=== PATIENT | male | born 1965 | race Caucasian/White ===

== ENCOUNTER 2017-03-25 05:39 | Inpatient (IN) | payer OTHER ==
[~2017-03-25] VITALS: Ht 180.3 cm; Wt 116.0 kg
--- NOTE | ~2017-03-25 | CT2 ---
[facility] A Service of [facility] & [facility] RADIOLOGY TEXT RESULTS PATIENT: AKSHAT FLORES JR LOCATION: A 320-01 : [birth year] UNIT #: [id number] AGE: [address]: Akshat Davila MD SEX: M ORDER DR: [id number] [facility] [address] [place], [place] [address] [id number] MR#: [id number] Acc #: [id number] NAME: AKSHAT FLORES JR : 1965 SEX: M STUDY DATE/TIME: 03/25/2017 10:41 UNIT: CPACUOF ROOM: STUDY DESCRIPTION: CT Abd and Pelv W Cont Attending Physician: Akshat Davila M.D. Ordering Physician: Akshat Davila M.D. Primary Care Physician: Maira Mcclure A.P.R.N. MEDICAL IMAGING REPORT This report is preliminary unless electronic signature is present EXAM CT abdomen and pelvis HISTORY Left lower quadrant pain. Double hernia. Bloody in stool for 2 months. Colon cancer diagnosed today. TECHNIQUE CT abdomen and pelvis performed with intravenous administration of 100 mL Isovue-370. Enteric contrast also administered. This CT exam was performed with one or more of the following radiation dose reduction techniques: automatic exposure control, adjustment of mA and/or kV according to patient size, and iterative reconstruction. COMPARISON No prior studies for comparison. Comparison with prior studies recommended, if available. FINDINGS Lung bases are clear. Inferior heart and pericardium unremarkable. Diffuse fatty infiltration of the liver with some focal spurring along the gallbladder fossa. Mild hepatic enlargement measuring about 17.9 cm in craniocaudal extent. Gallbladder, spleen, pancreas, adrenal glands, and kidneys unremarkable. CT PELVIS: Bilateral inguinal hernias containing only fat, right larger than left. No evidence of complication. Urinary bladder unremarkable. Prostatic calcifications. No pathologically enlarged retroperitoneal lymph nodes. There are some small enhancing retroperitoneal nodes, the largest of which measures about 7 x 8 mm in short axis. There are small lymph nodes suggested in proximity to the inferior mesenteric vein. These are entirely nonspecific, but given findings elsewhere on the scan, these small nodes and the suggestion of subtle enhancement is somewhat STS. [facility] A Service of [facility] & [facility] RADIOLOGY TEXT RESULTS PATIENT: AKSHAT FLORES JR LOCATION: C3A 320-01 : 63 UNIT #: [id number] AGE: [address]: Akshat Davila MD SEX: M ORDER DR: concerning, and attention on followup is recommended. There are small subcentimeter gastrohepatic ligament nodes. The distal esophagus, stomach, small bowel, and appendix are unremarkable. The colon is unremarkable to the level of the mid sigmoid colon, where there is an approximately 5-6 cm segment of near circumferential mass-like colonic wall thickening. There is associated luminal narrowing, but there is no evidence of obstruction. The more proximal colon is normal in caliber. Adjacent to this thickened segment of colon, there is some subtle haziness and stranding in the adjacent fat. This is nonspecific, but could be a reflection of inflammatory change or transmural tumor extension. Along the superior aspect of the lesion, there are multiple rounded densities favored to represent lymph nodes. The largest of these measures on the order of 7-14 mm. Appearance is concerning for angie metastatic disease. In addition there is at least 1 hypertrophied vein extending from the region of the lesion to the inferior mesenteric vein. There is relative enhancement of the colonic lesion, compared to the adjacent normal segments of colon. There is some fluid and air in the distal sigmoid colon and rectum beyond the lesion. The aorta is normal in caliber. The bony structures show degenerative changes in the spine. No acute-appearing abnormality. Note made of narrowing of the bilateral L5-S1 neural foramina. Appearance raises concern for possible bilateral exiting L5 nerve irritation. There is a posterior disc osteophyte complex at this level, as well, with some narrowing at the bilateral lateral recesses. Correlate clinically. IMPRESSION 1. Abnormal examination. There is a 5-6 cm segment of mid to distal sigmoid colon demonstrating near concentric mural thickening. This is at a level approximately 12 cm from the anal verge. The appearance is consistent with malignancy. This is felt to represent the location of the patient's stated colon cancer. There is luminal compromise, but there is no evidence of obstruction. No proximal colonic dilatation. Air and fluid seen in the most distal sigmoid colon and rectum. 2. Adjacent to the abnormal segment of distal sigmoid colon, there is haziness and stranding in the daly-sigmoidal fat. This could be reactive inflammatory change. Tumoral extension not excluded. In addition, there are small lymph nodes seen adjacent to the abnormal segment of sigmoid colon concerning for angie metastatic disease. Furthermore, there is at least 1 hypertrophied vein extending from the region of the abnormal colon to the inferior mesenteric vein. The region of colonic wall thickening shows mural thickening up to about 17 mm. 3. There are some small retroperitoneal lymph nodes measuring under 1 cm in short axis, and there are some small lymph nodes along the course of the inferior mesenteric vein. These are nonspecific. Some of them show subtle enhancement. The appearance raises concern for potential metastatic disease. Attention at followup recommended. These nodes are not amenable to either percutaneous sampling or STS. [facility] A Service of [facility] RADIOLOGY TEXT RESULTS PATIENT: AKSHAT FLORES JR LOCATION: [facility] 320-01 : 63 UNIT #: [id number] AGE: [address]: Akshat Davila MD SEX: M ORDER DR: assessment with PET/CT scan. 4. Fatty infiltration of liver without suspicious focal abnormality. Mild hepatic enlargement. 5. No other acute abnormalities in the abdomen or pelvis. 6. Bilateral inguinal hernias containing only fat, left greater than right. 7. Degenerative changes in the spine, most pronounced at L5-S1. See discussion above. If it would assist in management, lumbar spine could be further evaluated with elective MRI, if the patient is a candidate. No findings to raise concern for osseous metastatic disease. Dictated by... Kwadwo Bajwa M.D. THIS IS AN ELECTRONICALLY VERIFIED REPORT Kwadwo Bajwa M.D. at 03/25/2017 6:04 PM DONALD/gabriela TD: 03/25/2017 13:08 JOB #: [id number] MEDICAL IMAGING REPORT Page 1 of 1 COPY
--- NOTE | ~2017-03-25 | EKG ---
PATIENT: AKSHAT FLORES UNIT #: [id number] Ventricular Rate: 54 BPM Atrial Rate: 54 BPM P-R Interval: 136 ms QRS Duration: 88 ms Q-T Interval: 434 ms QTC Calculation(Bezet): 411 ms P [employer]: 20 degrees Calculated R [employer]: 7 degrees Diagnosis Line: Sinus bradycardia Diagnosis Line: Otherwise normal ECG Diagnosis Line: No previous ECGs available Diagnosis Line: Confirmed by RUBÉN WHITNEY MD ([id number]) on Diagnosis Line: 03/25/2017 12:01:41 PM INTERPRETING MD: DEVONTE JETER
--- NOTE | ~2017-03-25 | CO ---
Unit #: [id number] #: [id number] Patient: AKSHAT FLORES JR [id number] [address] [place], [place] [address] [id number] I MR#: [id number] NAME: AKSHAT FLORES JR ROOM: 475 Age: 51 Sex: M Admission Date: 03/25/2017 : 1965 Attending Physician: Akshat Davila M.D. Primary Care Physician: Maria Mcclure A.P.R.N. Consultation Date: 03/28/2017 CONSULTATION REPORT REASON FOR CONSULTATION Colon cancer. Please evaluate. HISTORY OF PRESENT ILLNESS Mr. Akshat Flores is a 51-year-old with a family history of colon cancer, who presented to Dr. Davila with rectal bleeding without any changes in appetite or weight. He has never had a previous colonoscopy. At colonoscopy, he was found to have a 20 cm near obstructing mass consistent malignancy. He subsequently underwent an exploratory laparotomy, low anterior resection with total mesorectal excision, and primary anastomosis on 03/25/2017. Postoperatively, he is doing well. He is currently on a full liquid diet. Pathology revealed a rectosigmoid resection with a tumor measuring 6.6 x 3.2 x 0.4 cm. some adenocarcinoma moderately differentiated, grade 2 or 4 pericolonic adipose tissue. All margins were uninvolved by invasive carcinoma. There were 2 tumor deposits and 11/16 nodes contained metastatic carcinoma with extracapsular extension. Pathological stage was pT3 PN2b MX. CT scan of the abdomen and pelvis done 03/25/2017 revealed bilateral inguinal hernias. The small enhancing retroperitoneal node measures 7 to 8 mm with no pathologically enlarged retroperitoneal lymph nodes. There was a 5 to 6 cm segment in near circumferential mass like colon wall thickening to the level of the mid sigmoid colon. At surgery, dissection required to be below the peritoneal reflection. PAST MEDICAL HISTORY No significant past medical illnesses. Have not seen a physician for many years. PAST SURGICAL HISTORY None. FAMILY HISTORY Colon cancer in both parents. His mother in her 30s with colon cancer and father had colon cancer in his 50s. He is a younger brother, who has polyps. SOCIAL HISTORY Never smoker. Drinks 3 or 4 beers a day. Works in construction. He is and has 2 children. REVIEW OF SYSTEMS Fourteen point review of systems was taken. CONSTITUTIONAL: As discussed. EYES: Negative. Unit #: [id number] #: [id number] Patient: AKSHAT FLORES JR EARS, NOSE, MOUTH, and THROAT: Negative. CARDIOVASCULAR: Negative. RESPIRATORY: Negative. GASTROINTESTINAL: As discussed. GENITOURINARY: Negative. NEUROLOGIC: Negative. ALLERGIC/LYMPHATIC: Negative. SKIN: Negative. PSYCHIATRIC: Negative. PHYSICAL EXAMINATION GENERAL: He is a very pleasant middle-aged man, awake, alert, and oriented x3. VITAL SIGNS: Temperature 99.4, pulse is 68, respiratory rate 16, blood pressure 150/79, oxygen saturation 98% on room air. HEENT: Shows pupils are equal and reactive well to light. Mucous membranes are moist. NECK: Without adenopathy, JVD, or thyromegaly. CARDIOVASCULAR: First and second heart sounds are heard and regular without murmurs, gallops, or rubs. LUNGS: Chest expansion is symmetric bilaterally currently with normal breath sounds. ABDOMEN: Nondistended. Bandaged lower midline incision is noted. Bowel sounds are present. EXTREMITIES: Warm with good pulses. No edema, cyanosis, or clubbing. NEUROLOGIC: He is awake, alert, oriented x3 without any focal findings. DIAGNOSTIC STUDIES LABORATORY RESULTS: CBC at the time of admission showed white count of 4.7, hemoglobin 15.7, platelets 153,000. Complete metabolic panel showed an ALT of 47, but otherwise was unremarkable. CEA level is 2.5. Free T4 is 1.03. TSH 4.4. Urine drug screen was positive for opiates. Pathology as discussed. IMAGING STUDIES: CT scan as discussed above. ASSESSMENT AND PLAN Mr. Akshat Flores is 51-year-old with strong family history of colon cancer in both parents as well as a brother with polyps, who has not had a previous colonoscopy. He now presents with rectal bleeding and underwent a colonoscopy with findings of near obstructing mass at 20 cm followed by laparotomy with low anterior resection with total mesorectal excision, with the findings of stage IIIB colon cancer below the peritoneal reflection. He has 11 out of 16 lymph nodes and had 2 discontinuous tumor deposits. I had an extensive discussion with the patient and who was at bedside, but he will require adjuvant chemoradiation therapy given that it is below the peritoneal reflection. He will require 8 cycles of chemotherapy with FOLFOX thereafter with radiation therapy with Xeloda or infusional 5-FU. He will also require a PET-CT scan to complete the imaging. Thank you for allowing me to participate in his care. Dictated by... Antoni Crocker M.D. [facility]/bang Unit #: [id number] #: [id number] Patient: AKSHAT FLORES JR TD: 03/28/2017 12:24 JOB #: [id number] CONSULTATION REPORT Page 1 of 1 X Antoni Crocker MD X CONSULTATION REPORT
--- NOTE | ~2017-03-25 | OR ---
Unit #: [id number] #: [id number] Patient: AKSHAT FLORES JR [id number] [address] [address] [id number] I MR#: [id number] NAME: AKSHAT FLORES JR ROOM: [facility] Date of Procedure: 03/26/2017 Admission Date: 03/25/2017 Surgeon: Akshat Davila M.D. : 1965 Attending Physician: Akshat Davila M.D. Primary Care Physician: Maria Mcclure A.P.R.N. OPERATIVE REPORT PREOPERATIVE DIAGNOSIS Near obstructing mass at 20 cm from the anal verge consistent with carcinoma. POSTOPERATIVE DIAGNOSIS Near obstructing mass at 20 cm from the anal verge consistent with carcinoma. PROCEDURES PERFORMED Exploratory laparotomy, low anterior resection with total mesorectal resection, and primary anastomosis. DIAGNOSTIC TECH Nael. ANESTHESIA General endotracheal anesthesia. ESTIMATED BLOOD LOSS 100 mL. INDICATIONS FOR PROCEDURE A 51-year-old gentleman with a strong family history of colon cancer, presented to the office with intermittent rectal bleeding. At the time of endoscopic evaluation, he was found to have a near obstructing mass at 20 cm from the anal verge consistent with malignancy. DESCRIPTION OF PROCEDURE The patient was transported from his hospital room to the operating room, and after induction of general endotracheal anesthesia, Kulkarni catheter and orogastric tube were placed. The abdominal wall hair was clipped. He was placed in Georgi stirrups and a rectal prep was performed. He received IV antibiotics per SCIP protocol and was prepped and draped in usual sterile fashion. A lower midline incision was made. I dissected down through the soft tissue and entered into the peritoneal cavity and then the Bookwalter retractor was used to retract the abdominal wall. I explored the abdomen. The mass was easily palpable and was circumferential. There were some palpable nodules in the mesentery consistent with enlarged lymph nodes. Above the primary mass at 20 cm, no other palpable lesions in the colon were noted. The small bowel and stomach were normal. No palpable lesions in the stomach or gallbladder. The sigmoid colon was mobilized along the line of Toldt. The peritoneum was opened along the right mesentery of the Unit #: [id number] #: [id number] Patient: AKSHAT FLORES JR rectosigmoid and both the right and left ureters were identified and traced out. I then further mobilized the proximal colon and clamped, divided, and ligated the sigmoid colon with a REBEKAH stapler. I then mobilized the mesentery and did a total mesorectal resection as I mobilized the rectosigmoid. Below the level of the mass, the peritoneum was opened circumferentially and the rectum was dissected out circumferentially. A contour stapler was used to divide the rectum and removed the specimen. The specimen was sent for permanent section. I irrigated and ensured there was good hemostasis and there was. The proximal colon was then further mobilized. The closed end was opened and Allis clamps were used to hold the lumen open as a 29 mm anvil from an EEA stapler was placed through the anterior tenia. The open end was then closed with a REBEKAH stapler. I then went below and dilated the rectum and passed the EEA stapler. The stapler was opened in the usual fashion and end-to-side stapled anastomosis with a 29 mm EEA stapler was performed. On the back table, I checked and there were 2 good and complete doughnuts. The pelvis was filled with saline and we clamped the proximal colon off. We forcefully insufflated through the rectum. There was good proximal distention of the colon and there was no leakage through the anastomotic ring. I then changed gown and gloves, went back to the abdominal cavity. We irrigated out the abdomen and ensured good hemostasis. I put the bowel in the anatomic position. I brought omentum down and placed over the anastomosis. I thoroughly irrigated the peritoneal cavity and suctioned the irrigant out and it was clear. The stomach was decompressed fully with the orogastric tube and removed. The midline fascia was closed with #1 looped PDS suture starting one superiorly and one inferiorly and closing them together in the center. The soft tissue was irrigated with saline followed by Betadine. Sterile skin nicko were used to reapproximate the skin and a dry sterile dressing was placed. Sponges and needle counts were correct x3. Kulkarni catheter was left in place. The patient was transported to recovery in stable condition. Findings and postoperative expectations were discussed with the family. Dictated by... Akshat Davila M.D. KAT/bang TD: 03/26/2017 19:58 JOB #: [id number] OPERATIVE REPORT Page 1 of 1 X Akshat Davila MD PROCEDURE OPERATIVE NOTE
--- NOTE | ~2017-03-25 | DS ---
Unit #: [id number] #: [id number] Patient: AKSHAT FLORES JR [id number] [address] [place], [place] [address] [id number] I MR#: [id number] NAME: AKSHAT FLORES JR ROOM: 475 Age: 51 Sex: M Admission Date: 03/25/2017 : 1965 Discharge Date: 03/30/2017 Attending Physician: Akshat Davila M.D. Primary Care Physician: Maria Mcclure A.P.R.N. DISCHARGE SUMMARY ADMITTING AND FINAL DIAGNOSIS Adenocarcinoma of the rectosigmoid area, stage 3. SECONDARY DIAGNOSES None. BRIEF SUMMARY The patient is a 51-year-old white male who recently underwent colonoscopy, I believe for screening purposes, and was found to have a tumor in the area of the lower sigmoid. He was brought at this time for sigmoid resection by Dr. Davila. Physical examination on admission was unremarkable. ADMITTING LABORATORY VALUES Basically within normal limits. HOSPITAL COURSE The patient was brought in, as noted above, for actually rectal bleeding and esophagitis and had upper and lower endoscopy. He had an obstructing mass noted at 20 cm in the colon and his upper scope revealed some pangastritis with esophagitis and duodenitis. The patient was admitted immediately following his colonoscopy and upper endoscopy and set up for a colon resection. He underwent low anterior resection on the day after his admission on 03/26/17. At present, he is four days postop, ambulating well, tolerating a diet, afebrile, in satisfactory condition. He has minimal abdominal pain. He has been seen in consultation by Dr. Francisco and on pathology was noted to have a stage 3 cancer of the lower sigmoid with positive nodes. The plan will be to discharge patient home in satisfactory condition. He has had a small amount of serous drainage from his wound but his wound appears to be clean without evidence of any cellulitis or infection. He will be on a regular home diet, limit lifting no more than 5-10 pounds, and keeping his wound clean and dry and calling office for a followup appointment for this Thursday with Dr. Davila. He will be following up with Dr. Francisco in the office in the future as well for his adjuvant therapy. Dictated by... Unit #: [id number] #: [id number] Patient: AKSHAT FLORES JR, Jr., M.D. JMB/ezequiel TD: 03/30/2017 07:32 JOB #: [id number] DISCHARGE SUMMARY Page 1 of 1 X Drew Brewer MD X DISCHARGE SUMMARY
--- NOTE | ~2017-03-25 | OR ---
Unit #: [id number] #: [id number] Patient: AKSHAT FLORES JR [id number] [facility] [address] [place], [place] [address] [id number] MR#: [id number] NAME: AKSHAT FLORES JR ROOM: Date of Procedure: 03/25/2017 Admission Date: 03/25/2017 Surgeon: Akshat Davila M.D. : 1965 Attending Physician: Akshat Davila M.D. Primary Care Physician: Maria Mcclure A.P.R.N. OPERATIVE REPORT PRIMARY CARE PHYSICIAN Akshat Camarillo M.D. PREOPERATIVE DIAGNOSES Rectal bleeding and epigastric pain with nausea. POSTOPERATIVE DIAGNOSES 1. Mild esophagitis. 2. Severe pangastritis. 3. Mild duodenitis with polypoid change in the duodenal bulb. 4. Near obstructing mass at 20 cm from the anal verge consistent with malignancy. PROCEDURES PERFORMED 1. Esophagogastroduodenoscopy with CLOtesting from the stomach and a biopsy for pathology x4 from the duodenum and stomach. 2. Colonoscopy to 20 cm. Unable to pass the near obstructing mass, biopsy x4 from the mass. ANESTHESIA Monitored anesthesia. INDICATIONS FOR PROCEDURE Mr. Flores is a 51-year-old gentleman with a family history of colon cancer, who presented with some left lower quadrant pain and some rectal bleeding. He also was complaining of some nausea and epigastric discomfort periodically. He denied any other prior medical history, never had endoscopic evaluation. DESCRIPTION OF PROCEDURE The patient was admitted to [facility], positively identified, transported to the endoscopy unit. After appropriate monitoring and positioning, he was sedated by the anesthesiologist. Bite block had been placed and the endoscope was passed through the oral cavity into the upper esophagus. Under direct vision, I passed through the esophagus and at the distal esophagus right at the GE junction, there was 2 streaks of a little bit of irritation, but no ulceration. He may have some mild esophagitis. There was no Douglas mucosa. As I entered the stomach and insufflated, he had severe pangastritis, but there was no evidence of any bleeding or active bleeding, but he had a great deal of inflammation and erythema throughout. As I passed through the pylorus just inside the duodenal bulb, there was inflammation and erythema of the Unit #: [id number] #: [id number] Patient: AKSHAT FLORES JR mucosa and there was an area where the mucosa appeared to be like a flat polypoid appearance. Biopsy from the polypoid appearance mucosa was taken x2. I easily passed down to the third and fourth portion of the duodenum. The duodenum second, third, and fourth portions were entirely normal. As I came back in the stomach, an antral biopsy for CLOtesting was taken and then random biopsies from the gastric mucosa for pathology was taken. In retroflexing the scope above the incisura, no other findings in the upper fundus or cardia were noted. The GE junction was well demarcated at 40 cm from the incisors and again no Douglas mucosa ulceration or mass was seen. The rest of the esophagus was normal and the larynx was normal. After completion of the upper scope, the patient was repositioned. On rectal examination, there was no local anorectal pathology, and prostate was normal to digital exam. Colonoscope was passed through the anal verge and at 20 cm, there was a near obstructing mass that was very friable. I could see the lumen, but the scope was unable to be passed beyond the mass. Biopsies x4 were taken from the mass and sent fresh to the laboratory for evaluation. The rest of the evaluation in a retrograde fashion was unremarkable. The patient tolerated the procedure well and transported to recovery in stable condition. Findings will be discussed with the patient and his family. I am going to recommend admission for further evaluation and workup. The patient will need surgical intervention and I will discuss that at length with the patient and his family. Dictated by... Wm Dimas/bang TD: 03/25/2017 08:07 JOB #: [id number] CC: Akshat Camarillo M.D. OPERATIVE REPORT Page 1 of 1 X Akshat Davila MD PROCEDURE OPERATIVE NOTE
[~2017-03-25 05:39] MED LIST: FLEXERIL10 MG PO; LORTAB 5/500 TA1 TA1 PO; NO MEDICATIONS
[2017-03-25 08:44] LABS: BASOPHIL# 0.1 X10e3 (0-0.3); BASOPHIL% 1.1 % (0-2.5); EOSINOPHIL# 0.1 X10e3 (0-0.7); EOSINOPHIL% 1.6 % (0.0-7.0); HEMATOCRIT 45.9 % (38.0-50.0); HEMOGLOBIN 15.7 gm/dL (13.0-16.0); LYMPHOCYTE# 1.6 X10e3 (1.0-3.5); LYMPHOCYTE% 33.7 % (17.0-45.0); MEAN CELL VOLUME 92.8 FL (83-96); MEAN CORPUSCULAR HEMOGLOBIN 31.7 PG (28-34); MEAN CORPUSCULAR HGB CONC 34.2 g/dL (30-36); MEAN PLATELET VOLUME 6.7 FL (6.5-11.5); MONOCYTE# 0.6 X10e3 (0-1.0); MONOCYTE% 13.5 % (3.0-12.0); NEUTROPHIL# 2.4 X10e3 (1.5-7.1); NEUTROPHIL% 50.1 % (40-75); PLATELET COUNT 153 X10e3 (140-420); RED BLOOD COUNT 4.94 X10e (3.90-5.60); RED CELL DISTRIBUTION WIDTH 13.6 % (11.0-15.5); WHITE BLOOD COUNT 4.7 X10e3 (4.0-10.5)
[2017-03-25 08:55] LABS: DIFF IND NO
[2017-03-25 09:13] LABS: BILIRUBIN,TOTAL 0.7 mg/dL (0.2-2.0); CALCIUM SERUM 8.9 mg/dL (8.4-10.2); CREATININE SERUM 1.2 mg/dL (0.6-1.4); GLOM FILT RATE Estimated 69.1 mL/min (>60); MAGNESIUM 2.1 mg/dL (1.6-3.0); PHOSPHOROUS 2.8 mg/dL (2.5-4.6); POTASSIUM 4.2 mmol/L (3.5-5.1); PROTEIN TOTAL SERUM 7.1 g/dL (6.0-8.3)
[2017-03-25 19:16] LABS: THYROID STIMULATING HORMONE 4.4 uIU/ml (0.34-5.60)
[2017-03-25 19:23] LABS: FREE THYROXIN (T4) 1.03 ng/dL (0.58-1.64)
[2017-03-26 07:20] LABS: AMPHETAMINE NEG (NEG); BARBITURATES NEG (NEG); BENZODIAZEPINES POS (NEG); COCAINE NEG (NEG); MARIJUANA NEG (NEG); OPIATES POS (NEG); TRICYCLIC ANTIDEPRESSANTS NEG (NEG); U METHADONE NEG (NEG)
[2017-03-27 02:36] LABS: BASOPHIL% 0.2 % (0-2.5); HEMATOCRIT 39.9 % (38.0-50.0); LYMPHOCYTE# 1.5 X10e3 (1.0-3.5); LYMPHOCYTE% 10.8 % (17.0-45.0); MEAN CELL VOLUME 94.6 FL (83-96); MEAN CORPUSCULAR HEMOGLOBIN 31.9 PG (28-34); MEAN CORPUSCULAR HGB CONC 33.8 g/dL (30-36); MONOCYTE# 1.1 X10e3 (0-1.0); MONOCYTE% 7.7 % (3.0-12.0); NEUTROPHIL# 11.4 X10e3 (1.5-7.1); NEUTROPHIL% 81.3 % (40-75); PLATELET COUNT 151 X10e3 (140-420); RED BLOOD COUNT 4.22 X10e (3.90-5.60); RED CELL DISTRIBUTION WIDTH 13.6 % (11.0-15.5)
[2017-03-27 02:37] LABS: HEMOGLOBIN 13.5 gm/dL (13.0-16.0)
[2017-03-27 02:38] LABS: DIFF IND NO
[2017-03-27 02:57] LABS: BUN/CREATININE RATIO 6.36; CALCIUM SERUM 7.9 mg/dL (8.4-10.2); CREATININE SERUM 1.1 mg/dL (0.6-1.4); GLOM FILT RATE Estimated 76.8 mL/min (>60); PHOSPHOROUS 3.6 mg/dL (2.5-4.6); POTASSIUM 4.2 mmol/L (3.5-5.1)
[2017-03-28 03:14] LABS: HEMATOCRIT 35.1 % (38.0-50.0); HEMOGLOBIN 12.3 gm/dL (13.0-16.0); MEAN CELL VOLUME 93.4 FL (83-96); MEAN CORPUSCULAR HEMOGLOBIN 32.6 PG (28-34); MEAN CORPUSCULAR HGB CONC 34.9 g/dL (30-36); MEAN PLATELET VOLUME 6.8 FL (6.5-11.5); RED BLOOD COUNT 3.76 X10e (3.90-5.60); RED CELL DISTRIBUTION WIDTH 13.6 % (11.0-15.5)
[2017-03-29 03:48] LABS: HEMATOCRIT 36.4 % (38.0-50.0); HEMOGLOBIN 12.7 gm/dL (13.0-16.0); MEAN CELL VOLUME 92.4 FL (83-96); MEAN CORPUSCULAR HEMOGLOBIN 32.2 PG (28-34); MEAN CORPUSCULAR HGB CONC 34.8 g/dL (30-36); MEAN PLATELET VOLUME 6.9 FL (6.5-11.5); RED BLOOD COUNT 3.94 X10e (3.90-5.60); RED CELL DISTRIBUTION WIDTH 13.3 % (11.0-15.5); WHITE BLOOD COUNT 7.9 X10e3 (4.0-10.5)
[2017-03-29 04:02] LABS: ALBUMIN SERUM 3.6 g/dL (3.5-5.0); CALCIUM SERUM 8.7 mg/dL (8.4-10.2); GLOM FILT RATE Estimated 86.2 mL/min (>60); POTASSIUM 3.5 mmol/L (3.5-5.1)
[2017-03-30] MEDS ORDERED: PERCOCET10 PO (06:20)
== END 2017-03-30 07:01 | disposition home or self-care (01) | DRG 333 ==
LOC: COPS 05:39 → CPACUOF 07:30 → COPS 08:53 → C3A PCU 08:53 → CPACUOF 08:53 → C3A PCU 15:01 → C4C 03-26 15:10
PROVIDERS: Specialist; Surgery
PROC: 0DBP8ZX Excision of Rectum, Via Natural or Artificial Opening Endoscopic, Diagnostic (ICD-10-PCS; 2017-03-25)
PROC: 0DB98ZX Excision of Duodenum, Via Natural or Artificial Opening Endoscopic, Diagnostic (ICD-10-PCS; 2017-03-25 07:00)
PROC: 0DB68ZX Excision of Stomach, Via Natural or Artificial Opening Endoscopic, Diagnostic (ICD-10-PCS; 2017-03-25 07:00)
PROC: 0DTP0ZZ Resection of Rectum, Open Approach (ICD-10-PCS; principal; 2017-03-26 11:00)
DX: C19 Malignant neoplasm of rectosigmoid junction (principal); C77.2 Secondary and unspecified malignant neoplasm of intra-abdominal lymph nodes; K20.9 Esophagitis, unspecified; Z80.0 Family history of malignant neoplasm of digestive organs; K29.70 Gastritis, unspecified, without bleeding; K29.80 Duodenitis without bleeding; Z86.010 Personal history of colon polyps
CPT/HCPCS: 74177; 80048; 80053; 80307; 82378; 83735; 84100; 84439; 84443; 85025; 85027; 86850; 86900; 86901; 87077; 88305; 88309; 93005; 94010; 94760; C9113; J0330; J1170; J1650; J1885; J2250; J2405; J2710; J2765; J3010; J3411; J7042; Q9967

== ENCOUNTER → 2017-04-28 | Outpatient (CLI) | payer OTHER ==
[~2017-04-28] MED LIST changes: +PERCOCET10 PO
--- NOTE | ~2017-04-28 | US128 ---
[id number] [facility]. [place], [place] [address] [id number] O MR#: [id number] Acc #: [id number] NAME: AKSHAT FLORES JR : 1965 SEX: M STUDY DATE/TIME: 04/28/2017 14:02 UNIT: [facility]US ROOM: STUDY DESCRIPTION: Thyroid Attending Physician: Antoni Crocker M.D. Referring Physician: Antoni Crocker M.D. Ordering Physician: Antoni Crocker M.D. Primary Care Physician: Maria Mcclure A.P.R.N. MEDICAL IMAGING REPORT This report is preliminary unless electronic signature is present EXAM Ultrasound of the thyroid, 04/28/2017. HISTORY 51-year-old male with history of colon cancer. Hypermetabolic region noted in the right thyroid lobe as an incidental finding on recent surveillance PET/CT scan. Ultrasound for further evaluation. TECHNIQUE High-resolution wilson-scale ultrasound imaging of the thyroid gland. Imaging is significantly limited by ultrasound attenuation related to patient body habitus. FINDINGS Thyroid size is normal. Right lobe measures 4.1 x 1.7 x 1.3 cm. Left lobe measures 3.3 x 1.5 x 1.3 cm. Thyroid isthmus thickness 0.7 cm. Thyroid parenchyma is diffusely heterogeneous, suggesting potential chronic thyroiditis. Correlate with thyroid function tests. No defined thyroid nodule or mass is seen in the right thyroid lobe, or elsewhere within the thyroid gland. IMPRESSION 1. No thyroid nodule or other focal lesion is identified to correspond with the region of hypermetabolic activity noted on recent PET/CT scan. 2. Thyroid parenchyma appears somewhat heterogeneous throughout both thyroid lobes. This is nonspecific, but can be seen with chronic thyroiditis; correlate clinically. 3. Thyroid size is normal. 4. Image detail is significantly limited by patient body habitus, as noted above. Dictated by... Brendan Owens M.D. THIS IS AN ELECTRONICALLY VERIFIED REPORT Brendan Owens M.D. at 05/08/2017 12:21 PM MICHAEL/gabriela TD: 04/28/2017 19:08 JOB #: [id number] MEDICAL IMAGING REPORT Page 1 of 1 COPY
== END | disposition home or self-care (01) ==
LOC: CGUS 13:30
DX: C19 Malignant neoplasm of rectosigmoid junction (principal); E04.1 Nontoxic single thyroid nodule; E06.9 Thyroiditis, unspecified
CPT/HCPCS: 76536